=== PATIENT | female | born 1945 | race Caucasian/White ===

== ENCOUNTER → 2016-06-30 | Outpatient (CLI) | payer OTHER ==
[~2016-06-30] MED LIST: /AMLO25TA PO; CEPH2CAP PO; HYDR25TA PO; LISI5TAB PO; LOPR50TA PO; LOSA100T36 PO; METF500T PO; METO25TA2 PO; ULTR50TA PO; [UNRECOGNIZED DRUG - OTHER] PO
[2016-06-30 09:02] LABS: MEAN CORPUSCULAR HEMOGLOBIN 30.4 pg (27.0-33.0); MEAN CORPUSCULAR HGB CONC 34.1 g/dl (32.0-36.5); MEAN CORPUSCULAR VOLUME 89.1 fl (80.0-96.0); RED CELL DISTRIBUTION WIDTH 12.1 % (11.5-14.5); WHITE BLOOD COUNT 5.4 K/mm3 (4.0-10.0)
[2016-06-30 09:25] LABS: ALBUMIN/GLOBULIN RATIO 1.21 (1.00-1.93); BILIRUBIN,DIRECT 0.2 MG/DL (0.0-0.2); BILIRUBIN,TOTAL 0.7 MG/DL (0.2-1.0); CALCIUM LEVEL 9.5 MG/DL (8.8-10.2); CREATININE FOR GFR 1.4 MG/DL (0.55-1.02); GLOMERULAR FILTRATION RATE 39.8 (>45); TOTAL PROTEIN 7.3 GM/DL (6.4-8.2)
[2016-06-30 09:27] LABS: POTASSIUM SERUM 5.7 MEQ/L (3.5-5.1)
== END ==
LOC: M LAB 07:33
PROVIDERS: ATTEND Nurse Practitioner Family
DX: I11.9 Hypertensive heart disease without heart failure (principal); E83.42 Hypomagnesemia; E78.00 Pure hypercholesterolemia, unspecified

== ENCOUNTER → 2016-07-16 | Outpatient (CLI) | payer OTHER ==
[2016-07-16 08:59] LABS: CALCIUM LEVEL 9.4 MG/DL (8.8-10.2); CREATININE FOR GFR 1.35 MG/DL (0.55-1.02); GLOMERULAR FILTRATION RATE 41.5 (>45); POTASSIUM SERUM 4.4 MEQ/L (3.5-5.1)
== END ==
LOC: M LAB 08:07
PROVIDERS: ATTEND Nurse Practitioner Family
DX: I11.9 Hypertensive heart disease without heart failure (principal)

== ENCOUNTER → 2016-08-20 | Outpatient (CLI) | payer OTHER | LOC: M LAB 08:19 | PROVIDERS: ATTEND Family Medicine | DX: R53.83 Other fatigue (principal); E03.9 Hypothyroidism, unspecified; E11.9 Type 2 diabetes mellitus without complications; I11.9 Hypertensive heart disease without heart failure ==

== ENCOUNTER → 2016-08-20 | Outpatient (CLI) | payer OTHER ==
[2016-08-20 08:56] LABS: CALCIUM LEVEL 9.2 MG/DL (8.8-10.2); CREATININE FOR GFR 1.47 MG/DL (0.55-1.02); GLOMERULAR FILTRATION RATE 37.6 (>45); POTASSIUM SERUM 4.6 MEQ/L (3.5-5.1)
== END ==
LOC: M LAB 08:16
PROVIDERS: ATTEND Nurse Practitioner Family
DX: I11.9 Hypertensive heart disease without heart failure (principal)

== ENCOUNTER → 2017-03-12 | Outpatient (CLI) | payer OTHER ==
[2017-03-12 09:57] LABS: ALBUMIN 3.8 GM/DL (3.2-5.2); ANION GAP 8 MEQ/L (8-16); BLOOD UREA NITROGEN 32 MG/DL (7-18); CALCIUM LEVEL 9.1 MG/DL (8.8-10.2); CARBON DIOXIDE LEVEL 26 MEQ/L (21-32); CHLORIDE LEVEL 106 MEQ/L (98-107); CREATININE FOR GFR 1.39 MG/DL (0.55-1.30); GLUCOSE, FASTING 132 MG/DL (70-100); PHOSPHORUS LEVEL 3.2 MG/DL (2.5-4.9); POTASSIUM SERUM 4.9 MEQ/L (3.5-5.1); SODIUM LEVEL 140 MEQ/L (136-145)
== END ==
LOC: M LAB 08:50
DX: I11.9 Hypertensive heart disease without heart failure (principal)
CPT/HCPCS: 80069

== ENCOUNTER → 2017-07-30 | Outpatient (CLI) | payer OTHER ==
[2017-07-30 09:11] LABS: HEMATOCRIT 37.6 % (36.0-47.0); HEMOGLOBIN 12.6 g/dl (12.0-15.5); MEAN CORPUSCULAR HEMOGLOBIN 29.1 pg (27.0-33.0); MEAN CORPUSCULAR HGB CONC 33.5 g/dl (32.0-36.5); MEAN CORPUSCULAR VOLUME 86.8 fl (80.0-96.0); PLATELET COUNT, AUTOMATED 218 10^3/uL (150-450); RED BLOOD COUNT 4.33 10^6/uL (4.00-5.40); RED CELL DISTRIBUTION WIDTH 12.3 % (11.5-14.5); WHITE BLOOD COUNT 6.5 10^3/uL (4.0-10.0)
[2017-07-30 09:42] LABS: ESTIMATED AVERAGE GLUCOSE 151 MG/DL (60-110); HEMOGLOBIN A1c 6.9 %
[2017-07-30 09:48] LABS: ALT/SGPT 48 U/L (12-78); ANION GAP 7 MEQ/L (8-16); AST/SGOT 27 U/L (7-37); BLOOD UREA NITROGEN 32 MG/DL (7-18); CALCIUM LEVEL 8.7 MG/DL (8.8-10.2); CARBON DIOXIDE LEVEL 25 MEQ/L (21-32); CHLORIDE LEVEL 105 MEQ/L (98-107); GLOMERULAR FILTRATION RATE 43.2 (>45); GLUCOSE, FASTING 141 MG/DL (70-100); POTASSIUM SERUM 4.9 MEQ/L (3.5-5.1); SODIUM LEVEL 137 MEQ/L (136-145)
[2017-07-30 09:49] LABS: ALBUMIN 3.7 GM/DL (3.2-5.2); ALBUMIN/GLOBULIN RATIO 1.09 (1.00-1.93); ALKALINE PHOSPHATASE 56 U/L (45-117); BILIRUBIN,TOTAL 0.6 MG/DL (0.2-1.0); CHOLESTEROL LEVEL 114 MG/DL (<200); CHOLESTEROL RISK RATIO 2.326 (<5); HDL CHOLESTEROL 49 MG/DL (>40); LDL CHOLESTEROL 30.8 MG/DL (<100); NON-HDL-C 65 MG/DL; TOTAL PROTEIN 7.1 GM/DL (6.4-8.2); TRIGLYCERIDES LEVEL 171 MG/DL (<150)
[2017-07-30 09:53] LABS: TOTAL 25(OH) VITAMIN D 23.4 NG/ML (30.0-100.0)
== END ==
LOC: M LAB 08:33
DX: R53.83 Other fatigue (principal); E11.9 Type 2 diabetes mellitus without complications; I10 Essential (primary) hypertension; Z79.899 Other long term (current) drug therapy
CPT/HCPCS: 84443

== ENCOUNTER → 2017-10-31 | Outpatient (CLI) | payer OTHER | LOC: M RAD 09:24 | DX: Z12.31 Encounter for screening mammogram for malignant neoplasm of breast (principal); Z78.0 Asymptomatic menopausal state; Z92.0 Personal history of contraception | CPT/HCPCS: 77067 ==

== ENCOUNTER → 2018-04-22 | Outpatient (CLI) | payer MEDICARE ==
--- NOTE | 2018-04-22 09:16 | REP ---
Chest two views HISTORY: hypertension Comparison: 03/10/2013 The lungs are clear. The heart is normal in size. The pulmonary vasculature is normal in appearance. The bony structure is intact. IMPRESSION: No acute disease. Electronically Signed by Sudhir Ryder MD 04/22/2018 09:07 A
[2018-04-22 09:48] LABS: HEMATOCRIT 37.5 % (36.0-47.0); HEMOGLOBIN 12.5 g/dl (12.0-15.5); MEAN CORPUSCULAR HGB CONC 33.3 g/dl (32.0-36.5); PLATELET COUNT, AUTOMATED 184 10^3/uL (150-450); RED BLOOD COUNT 4.31 10^6/uL (4.00-5.40); WHITE BLOOD COUNT 5.6 10^3/uL (4.0-10.0)
[2018-04-22 10:27] LABS: ALBUMIN 3.8 GM/DL (3.2-5.2); BILIRUBIN,TOTAL 0.8 MG/DL (0.2-1.0); CALCIUM LEVEL 8.7 MG/DL (8.8-10.2); CHOLESTEROL RISK RATIO 2.632 (<5); CREATININE FOR GFR 1.53 MG/DL (0.55-1.30); GLOMERULAR FILTRATION RATE 35.7 (>39); POTASSIUM SERUM 4.1 MEQ/L (3.5-5.1); THYROID STIMULATING HORMONE 1.88 uIU/ML (0.358-3.740); TOTAL 25(OH) VITAMIN D 42.6 NG/ML (30.0-100.0); TOTAL PROTEIN 6.8 GM/DL (6.4-8.2)
--- NOTE | 2018-04-24 00:38 | ECGEPIP ---
Stationary ECG Study [facility] Test Date: 2018-04-22 Pat Name: LOUIS SHORT Department: Room: - Gender: F Spanish Lecturer: XIAO : 1945 Requested By: Marino Lezama Order Number: [id number] Reading MD: Dmitri Pineda Measurements Intervals [place] Rate: 64 P: 55 HI: 232 QRS: -25 QRSD: 168 T: 133 QT: 450 QTc: 464 Interpretive Statements SINUS RHYTHM WITH FIRST DEGREE AV BLOCK LEFT BUNDLE BRANCH BLOCK COMPARED TO THE LAST 3 TRACINGS, LEFT BUNDLE-BRANCH BLOCK ALSO WAS NOTED IN 2013 Electronically Signed On 04-24-2018 0:38:12 EDT by Dmitri Pineda
== END ==
LOC: M LAB 08:27
PROVIDERS: ATTEND Family Medicine
DX: I10 Essential (primary) hypertension (principal); I44.0 Atrioventricular block, first degree; I44.7 Left bundle-branch block, unspecified; E03.9 Hypothyroidism, unspecified; E11.9 Type 2 diabetes mellitus without complications

== ENCOUNTER → 2018-10-21 | Outpatient (CLI) | payer MEDICARE ==
[~2018-10-21] MED LIST changes: -/AMLO25TA PO; +AMLO10TA5 PO; +ASPI81TA85 PO; +ATOR40TA75 PO; +CARV6.25 PO; +CHLO125TA PO; +D32000TA2 PO; +HYDR-4266 PO; -HYDR25TA PO; +LATA0.0015 OU; +LISI-538 PO; +MAGN400C PO; +METF500T13 PO; +MOBI4TAB PO; +NORV2TAB PO; +PRES10CA2 PO; +SPIR-10 PO
[2018-10-21 09:34] LABS: HEMATOCRIT 39.9 % (36.0-47.0); HEMOGLOBIN 13.4 g/dl (12.0-15.5); MEAN CORPUSCULAR HEMOGLOBIN 29.5 pg (27.0-33.0); MEAN CORPUSCULAR HGB CONC 33.6 g/dl (32.0-36.5); MEAN CORPUSCULAR VOLUME 87.7 fl (80.0-96.0); PLATELET COUNT, AUTOMATED 209 10^3/uL (150-450); RED BLOOD COUNT 4.55 10^6/uL (4.00-5.40); WHITE BLOOD COUNT 6.3 10^3/uL (4.0-10.0)
[2018-10-21 09:49] LABS: HEMOGLOBIN A1c 6.8 %
[2018-10-21 09:55] LABS: CALCIUM LEVEL 10.2 MG/DL (8.8-10.2); CREATININE FOR GFR 1.39 MG/DL (0.55-1.30); GLOMERULAR FILTRATION RATE 39.9 (>39); POTASSIUM SERUM 4.5 MEQ/L (3.5-5.1)
[2018-10-21 10:06] LABS: ALBUMIN 4.1 GM/DL (3.2-5.2); BILIRUBIN,TOTAL 0.8 MG/DL (0.2-1.0); CALCIUM LEVEL 9.9 MG/DL (8.8-10.2); CHOLESTEROL RISK RATIO 2.823 (<5); CREATININE FOR GFR 1.43 MG/DL (0.55-1.30); GLOMERULAR FILTRATION RATE 38.6 (>39); POTASSIUM SERUM 4.7 MEQ/L (3.5-5.1); THYROID STIMULATING HORMONE 1.2 uIU/ML (0.358-3.740); TOTAL PROTEIN 7.2 GM/DL (6.4-8.2)
[2018-10-21 10:12] LABS: TOTAL 25(OH) VITAMIN D 44.6 NG/ML (30.0-100.0)
== END ==
LOC: M LAB 08:38
PROVIDERS: ATTEND Physician Assistant
DX: R53.83 Other fatigue (principal); E03.9 Hypothyroidism, unspecified; I11.9 Hypertensive heart disease without heart failure

== ENCOUNTER → 2018-10-21 | Outpatient (CLI) | payer MEDICARE | LOC: M LAB 08:33 | PROVIDERS: ATTEND Family Medicine | DX: Z53.9 Procedure and treatment not carried out, unspecified reason (principal); I10 Essential (primary) hypertension; R53.83 Other fatigue; E03.9 Hypothyroidism, unspecified ==

== ENCOUNTER 2019-01-15 08:49 | Day surgery (SDC) | payer MEDICARE ==
[~2019-01-15] VITALS: Ht 154.9 cm; Wt 66.2 kg
[~2019-01-15 08:49] MED LIST changes: +NS 1,000 ML IV ONE
[2019-01-15] MEDS ORDERED: LIDOCAINE 2% INJ 100 MG/5 ML SDV (FOR ANES.) As Ordered ONE (09:33)
[2019-01-15] MEDS ORDERED: PROPOFOL 200 MG/20 ML VIAL As Ordered ONE (09:33)
--- NOTE | 2019-01-15 10:44 | ROOR ---
Patient Name: Marlyn Hodges Procedure Date: 01/15/2019 10:25 AM Date of : 1945 Age: 73 Room: [facility] Gender: Female Note Status: Finalized Procedure: Total Colonoscopy to Cecum Indications: Screening for colorectal malignant neoplasm Providers: Balwinder Hernandez MD Referring MD: RENE POTTER MD Requesting Provider: Medicines: Monitored Anesthesia Care Complications: No immediate complications. Procedure: Pre-Anesthesia Assessment: - The heart rate, respiratory rate, oxygen saturations, blood pressure, adequacy of pulmonary ventilation, and response to care were monitored throughout the procedure. The Colonoscope was introduced through the anus and advanced to the cecum, identified by appendiceal orifice and ileocecal valve. The colonoscopy was performed without difficulty. The patient tolerated the procedure well. The quality of the bowel preparation was good. Findings: The perianal and digital rectal examinations were normal. Non-bleeding internal hemorrhoids were found during retroflexion. The hemorrhoids were small and Grade I (internal hemorrhoids that do not prolapse). Scattered small-mouthed diverticula were found in the recto-sigmoid colon, sigmoid colon and descending colon. The exam was otherwise without abnormality on direct and retroflexion views. Impression: - Non-bleeding internal hemorrhoids. - Diverticulosis in the recto-sigmoid colon, in the sigmoid colon and in the descending colon. - The examination was otherwise normal on direct and retroflexion views. - No specimens collected. - The exam was otherwise normal to the cecum. Recommendation: - Patient has a contact number available for emergencies. The signs and symptoms of potential delayed complications were discussed with the patient. Return to normal activities tomorrow. Written discharge instructions were provided to the patient. - High fiber diet. - Discharge patient to home. - Continue present medications. - Repeat colonoscopy for symptoms only. - Return to referring physician. - The findings and recommendations were discussed with the patient's family. Balwinder Hernandez MD Balwinder Hernandez MD 01/15/2019 10:44:10 AM Electronically signed by Balwinder Hernandez MD Number of Addenda: 0 Note Initiated On: 01/15/2019 10:25 AM Estimated Blood Loss: Estimated blood loss: none.
[2019-01-15 11:00] VITALS: BP 132/80
== END 2019-01-15 11:13 | disposition home or self-care (01) ==
LOC: M OPP 08:49
PROVIDERS: ATTEND Internal Medicine Gastroenterology
DX: Z12.11 Encounter for screening for malignant neoplasm of colon (principal); K64.0 First degree hemorrhoids; K57.30 Diverticulosis of large intestine without perforation or abscess without bleeding; Z79.82 Long term (current) use of aspirin; Z79.84 Long term (current) use of oral hypoglycemic drugs; Z79.899 Other long term (current) drug therapy; Z88.5 Allergy status to narcotic agent

== ENCOUNTER → 2019-12-04 | Outpatient (CLI) | payer MEDICARE ==
[~2019-12-04] MED LIST changes: -AMLO10TA5 PO; +AMLO1TAB25 PO; -ASPI81TA85 PO; +ASPI81TA86 PO; -NS 1,000 ML IV ONE
[2019-12-04 10:06] LABS: HEMATOCRIT 39.5 % (36.0-47.0); HEMOGLOBIN 13.1 g/dl (12.0-15.5); MEAN CORPUSCULAR HEMOGLOBIN 29.4 pg (27.0-33.0); MEAN CORPUSCULAR HGB CONC 33.2 g/dl (32.0-36.5); MEAN CORPUSCULAR VOLUME 88.8 fl (80.0-96.0); PLATELET COUNT, AUTOMATED 211 10^3/uL (150-450); RED BLOOD COUNT 4.45 10^6/uL (4.00-5.40); WHITE BLOOD COUNT 5.5 10^3/uL (4.0-10.0)
[2019-12-04 10:36] LABS: CALCIUM LEVEL 9.5 MG/DL (8.8-10.2); CHOLESTEROL RISK RATIO 2.49 (<5); CREATININE FOR GFR 1.63 MG/DL (0.55-1.30); POTASSIUM SERUM 4.4 MEQ/L (3.5-5.1)
== END ==
LOC: M LAB 08:54
PROVIDERS: ATTEND Physician Assistant
DX: I11.9 Hypertensive heart disease without heart failure (principal)

== ENCOUNTER → 2019-12-04 | Outpatient (CLI) | payer MEDICARE ==
[2019-12-04 10:07] LABS: HEMATOCRIT 39.8 % (36.0-47.0); HEMOGLOBIN 13.1 g/dl (12.0-15.5); MEAN CORPUSCULAR HEMOGLOBIN 29.1 pg (27.0-33.0); MEAN CORPUSCULAR HGB CONC 32.9 g/dl (32.0-36.5); MEAN CORPUSCULAR VOLUME 88.4 fl (80.0-96.0); PLATELET COUNT, AUTOMATED 211 10^3/uL (150-450); WHITE BLOOD COUNT 5.4 10^3/uL (4.0-10.0)
[2019-12-04 10:42] LABS: ALBUMIN 3.7 GM/DL (3.2-5.2); BILIRUBIN,TOTAL 0.7 MG/DL (0.2-1.0); CALCIUM LEVEL 9.2 MG/DL (8.8-10.2); CHOLESTEROL RISK RATIO 2.5 (<5); CREATININE FOR GFR 1.61 MG/DL (0.55-1.30); GLOMERULAR FILTRATION RATE 33.5 (>39); POTASSIUM SERUM 4.4 MEQ/L (3.5-5.1); THYROID STIMULATING HORMONE 2.05 uIU/ML (0.358-3.740); TOTAL PROTEIN 6.9 GM/DL (6.4-8.2)
== END ==
LOC: M LAB 08:49
PROVIDERS: ATTEND Family Medicine
DX: D64.9 Anemia, unspecified (principal); R53.83 Other fatigue; I10 Essential (primary) hypertension; E11.9 Type 2 diabetes mellitus without complications; Z79.899 Other long term (current) drug therapy

== ENCOUNTER → 2020-05-12 | Outpatient (CLI) | payer MEDICARE ==
[~2020-05-12] MED LIST changes: -LISI-538 PO; +LISI20TA33 PO
--- NOTE | 2020-05-12 13:08 | REP ---
INDICATION: SCIATICA. COMPARISON: None. TECHNIQUE: Plain films of the lumbar spine include AP, lateral, and obliques. FINDINGS: No acute fracture or malalignment. Degenerative disc disease is seen diffusely throughout the lumbar spine with vacuum disc phenomena at L1-2 and L2-3 levels. There may be an slight anterolisthesis of L5 over S1. There is a mild left convex lumbar curvature. SI joints appear unremarkable. No evidence of osseous foraminal stenosis. There is heavy atherosclerotic calcification of the aorta and iliac arteries. IMPRESSION: No evidence of fracture. [id number] multilevel degenerative disc disease with vacuum disc phenomena at L1-2 and L2-3 levels. There appears to be a slight anterolisthesis of L5 over S1, alignment otherwise normal. Mild left convex lumbar curvature. No evidence of osseous foraminal stenosis. If symptoms persist, MRI may be informative. <Electronically signed by Westley Ayoub > 05/12/20 0100
--- NOTE | 2020-05-13 03:29 | REP ---
INDICATION: SCIATICA COMPARISON: None. TECHNIQUE: AP and frog-lateral views of the right and left hip FINDINGS: Generalized age-related changes include subtle increased sclerosis to the acetabulum with minimal joint space narrowing. No further overt osteoarthritic or significant degenerative changes are appreciated. No evidence for acute injury. Surrounding soft tissues are normal. Incidental small calcification adjacent to the right greater trochanter which may reflect sequelae of old avulsion injury or tendinous calcification. IMPRESSION: Mild generalized age-related changes. <Electronically signed by Dayton Matos > 05/13/20 [id number]
== END ==
LOC: M RAD 11:58
PROVIDERS: ATTEND Family Medicine
DX: M51.36 Other intervertebral disc degeneration, lumbar region (principal); M25.551 Pain in right hip; M25.552 Pain in left hip

== ENCOUNTER → 2020-08-23 | Outpatient (CLI) | payer MEDICARE ==
--- NOTE | 2020-08-25 00:14 | REPVR ---
PROCEDURE INFORMATION: Exam: MR Lumbar Spine Without Contrast Exam date and time: 08/23/2020 10:18 AM Age: 74 years old Clinical indication: Low back pain; Additional info: Disc degeneration, R/O stenosis TECHNIQUE: Imaging protocol: Multiplanar magnetic resonance images of the lumbar spine without intravenous contrast. COMPARISON: CR Spine. Lumbosacral, complete 05/12/2020 12:13 PM FINDINGS: Minimal levoscoliosis of the lumbar spine. Vertebral body heights are maintained. Advanced degenerative disc height loss at L2-L3 with Modic type 1 edematous degenerative endplate change. No evidence of acute lumbar spine fracture. No cord compression. 0.4 cm grade 1 anterolisthesis of L5 on S1. No abnormal cord signal. Conus medullaris terminates at the L1 level. Paravertebral soft tissues are unremarkable. L1-L2: Broad-based disc bulge causes mild canal narrowing. No significant foraminal narrowing L2-L3: Broad-based disc bulge and facet hypertrophy cause mild to moderate canal narrowing. Effacement of the right lateral recess with possible impingement upon the traversing right L3 nerve root. Mild left and moderate right foraminal narrowing. L3-L4: Broad-based disc bulge and facet hypertrophy cause mild canal narrowing and mild bilateral foraminal narrowing. L4-L5: Facet hypertrophy causes mild left foraminal narrowing. No significant canal narrowing. L5-S1: Combination of anterolisthesis and facet hypertrophy cause mild bilateral foraminal narrowing. No significant canal narrowing. IMPRESSION: Multilevel spondylotic changes of the lumbar spine, as detailed above. Electronically signed by: Silas Cloud On 08/25/2020 00:14:19 AM
== END ==
LOC: M PLAIMG 09:25
PROVIDERS: ATTEND Physician Assistant
DX: M51.36 Other intervertebral disc degeneration, lumbar region (principal)

== ENCOUNTER → 2020-10-31 | Outpatient (CLI) | payer MEDICARE ==
[2020-10-31 09:59] LABS: CALCIUM LEVEL 9.5 MG/DL (8.8-10.2); CHOLESTEROL RISK RATIO 3.416 (<5); CREATININE FOR GFR 1.39 MG/DL (0.55-1.30); GLOMERULAR FILTRATION RATE 39.6 (>39); POTASSIUM SERUM 4.6 MEQ/L (3.5-5.1)
== END ==
LOC: M LAB 08:42
PROVIDERS: ATTEND Physician Assistant
DX: E78.2 Mixed hyperlipidemia (principal); I11.9 Hypertensive heart disease without heart failure

== ENCOUNTER 2021-01-17 15:36 | Emergency (ER) | payer MEDICARE ==
[~2021-01-17] VITALS: Ht 157.5 cm; Wt 69.7 kg
[2021-01-17] MEDS ORDERED: ONETTES6 (15:55)
[2021-01-17] MEDS ORDERED: PROP20TA72 (15:55)
[2021-01-17] MEDS ORDERED: AMOX500C (15:55)
[2021-01-17 22:12] VITALS: BP 111/56
== END 2021-01-17 23:21 | disposition left against medical advice (07) ==
LOC: M ED 15:36
DX: Z53.21 Procedure and treatment not carried out due to patient leaving prior to being seen by health care provider (principal)